=== PATIENT | female | born 1950 | race Caucasian/White ===

== ENCOUNTER 2020-07-16 13:00 | Outpatient (RCR) | payer MEDICARE, SELFPAY ==
--- NOTE | 2020-03-25 12:19 | HP.PTEVAL_ITS ---
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 Date of Evaluation: 03/25/20 Physical Therapist: JESSY Roland - Visit Plan Frequency: 3x /Week Duration: 2 Months Plan: ++Posterior hip precautions, WBAT++. 3X/ week for 20 visits for R hip and knee ROM ( including hip and knee extension as in normal supine lying or QS), R hip and knee strength, functional strength such as stairs and sit to stand, gait training with HEP. ++++Pt does have a bad R knee, bad back, and also has some c-spine issues as well++ - Subjective Pt had spurs and OA in her R hip and it got to where her bone was coming out of socket. Her DOS was 03-14-2020 and she was there for 2 days. She has stairs to get into the house with railing with a platform on each steep step. She struggles getting in and out of the shower... she has a chair but they have a system. She is currently on a rolling walker. The Dr did not say how much weight to put through her leg. She RTD on 04-14-2020. She said that her Dr usually only does skinny people. She sleeps with hip and pillow and has a stool to get into her bed and hard to get herself scooted backwards. Pt has to have her knee done next, then her back and then her neck. - Pain R hip pain Pain Intensity (Out of 10): 2 - Objective Pt have very poor walking endurance... had to stop twice on the way to and from the waiting room. She likes to plop into the chair and needed verbal cues to use her arms to make sure she was going to sit in the chair and to lower herself down. Pt also stuggled with scooting back onto the mat table. Gait: walks with a rolling walker with decrease stride length on the R and heavy pressure through B UE's on the walker. She walks with flexed trunk and decreased B hip extension and decreased heel and toe gait pattern. R hip flexion PROM to just shy of 90 degrees. R knee ext -10 degrees from full extension and R knee flexion 110 degrees. R hip ABD AAROM to approx 5 degrees ( increase discomfort in the groin). AA SLR needed X 10. SAQ... feels it in the groin - Goals Goal 1:: I HEP Goal Time Frame: 4-6 Weeks Goal 2:: Increase R knee extension to 0 degrees extension Goal Time Frame: 4-6 Weeks Goal 3:: Be able to walk without an assistive device with normal stride length and increase hip extension with normal heel to toe gait pattern. Goal Time Frame: 4-6 Weeks Goal 4:: Be able to go up and down 1 flight of stairs recip with 1 hand rail with SBA Goal Time Frame: 4-6 Weeks - Rehabilitation Potential Rehabilitation Potential: Good - Anticipated Interventions Patient/Client Instruction: Educate patient on: Condition, Plan of Care For the Purpose of:: To decrease pain, To increase ROM, To improve nutrient delivery to tissue, To increase oxygenation perfusion, To improve muscle performance and motor function, To improve ability to perform ADL's, To increase tolerance to activity/condition/position, To improve performance and independence with ADL's, To decrease level of supervision to perform tasks, To improve ability of physical actions for home/community/work/leisure, To improve gait and locomotor functions, To improve health of tissue, To decrease soft tissue restriction, To increase flexibility/ROM, To improve endurance, To improve balance, To improve safety with gait Therapeutic Exercise to Include: Strength training, Endurance training, Balance training, Postural training, Flexibilty training, Gait and locomotor training, Active ROM For the Purpose of:: To decrease pain, To decrease swelling/inflammation, To increase ROM, To increase oxygenation perfusion, To improve muscle performance and motor function, To improve ability to perform ADL's, To increase tolerance to activity/condition/position, To improve performance and independence with ADL's, To decrease level of supervision to perform tasks, To improve ability of physical actions for home/community/work/leisure, To improve gait and locomotor functions, To improve health of tissue, To decrease soft tissue restriction, To increase flexibility/ROM, To improve endurance, To improve safety with gait Functional Training to Include: Gait training For the Purpose of:: To improve gait and locomotor functions, To improve safety with gait Thank you for the opportunity to evaluate your patient. For Medicare and Medicare HMO plans, please review the plan of care and approve it. It will need to be FAXED BACK to us at [phone] for Medicare purposes. For Medicare only, by signing this I certify the plan of care. Please let me know if there are questions or concerns regarding this plan of care. Physician Signature: Date:
--- NOTE | 2020-04-16 11:39 | HP.PTREVAL ---
DM CRENSHAW, It has been my pleasure to treat SIOBHAN RENTERIA over the last 8 visits for S/P R THR 03-14-2020. Please see the progress note below for an update on the physical therapy plan of care! Subjective: Pt got her order for AT since PT is aggrevating her knee and back. She report that her R hip is fine. When she has pain it is around the incision. She has steps to get into the house with railing and she is doing that just fine. She does not feel that she needs the walker. No issues with getting out of chair. Objective/Function: Gait: walks with flexed trunk and cane in R hand with shorter stride. Pt has increase SOB with ambulation after only about 50 feet and worsened the longer we walked. Stairs: up and down leading with L but able to go up recip with 2 hand rails when asked to but it increases knee pain. Also had increased SOB with it. R knee ext -5 degrees from full extension Plan Plan: ++Posterior hip precautions, WBAT++. Pt is able to transition to a cane when able per MD. 2X/ week for 4 weeks for R hip and knee ROM ( including hip and knee extension as in normal supine lying or QS), R hip and knee strength, functional strength such as stairs and sit to stand, gait training with HEP. ++++Pt does have a bad R knee, bad back, and also has some c-spine issues as well++ Goals Goal 1:: I HEP Goal Time Frame: 4-6 Weeks Goal Progress: Progressing Goal 2:: Increase R knee extension to 0 degrees extension Goal Time Frame: 4-6 Weeks Goal Progress: Progressing Goal 3:: Be able to walk without an assistive device with normal stride length and increase hip extension with normal heel to toe gait pattern. Goal Time Frame: 4-6 Weeks Goal Progress: Progressing Goal 4:: Be able to go up and down 1 flight of stairs recip with 1 hand rail with SBA Goal Time Frame: 4-6 Weeks Goal Progress: Progressing Goal 5:: Be able to walk 300 feet with least restirctive device with no SOB or LOB Goal Time Frame: 2-4 Weeks Anticipated Interventions Patient/Client Instruction: Educate patient on: Condition, Plan of Care For the Purpose of:: To decrease pain, To increase ROM, To improve nutrient delivery to tissue, To increase oxygenation perfusion, To improve muscle performance and motor function, To improve ability to perform ADL's, To increase tolerance to activity/condition/position, To improve performance and independence with ADL's, To decrease level of supervision to perform tasks, To improve ability of physical actions for home/community/work/leisure, To improve gait and locomotor functions, To improve health of tissue, To decrease soft tissue restriction, To increase flexibility/ROM, To improve endurance, To improve balance, To improve safety with gait Therapeutic Exercise to Include: Strength training, Endurance training, Balance training, Postural training, Flexibilty training, Gait and locomotor training, Active ROM For the Purpose of:: To decrease pain, To decrease swelling/inflammation, To increase ROM, To increase oxygenation perfusion, To improve muscle performance and motor function, To improve ability to perform ADL's, To increase tolerance to activity/condition/position, To improve performance and independence with ADL's, To decrease level of supervision to perform tasks, To improve ability of physical actions for home/community/work/leisure, To improve gait and locomotor functions, To improve health of tissue, To decrease soft tissue restriction, To increase flexibility/ROM, To improve endurance, To improve safety with gait Functional Training to Include: Gait training For the Purpose of:: To improve gait and locomotor functions, To improve safety with gait Please do not hesitate to contact me at [phone] by phone or if you have questions or concerns regarding this new plan of care! Sincerely, JESSY Roland
--- NOTE | 2020-05-14 12:54 | HP.PTREVAL ---
DM CRENSHAW, It has been my pleasure to treat SIOBHAN RENTERIA over the last 16 visits for S/P R THR 03-14-2020. Please see the progress note below for an update on the physical therapy plan of care! Subjective: The AT is so much better. She is going to have knee injections in B knees in Jul and hopefully a back injection. She is now able to walk back to the treatment area. She is doing better with her hip. She is still struggling with her knees and back pain. No hip pain. The water therapy is helping her knees and back too. Her form is still not good with some of the exercises per SHIRA Cheek. Objective/Function: Gait: walks with decrease stance time on the R LE. She is walking with increased trunk extension. She is walking with increased stride length but not quite as normal as should be... still trunk flexion with gait but improved. Stairs: up and down attempting recip but uses UE to descend the stairs and hopes to stop knee from bending. R Knee ext AROM: -5 degrees from full extension. Plan Plan: Continue with AT for R hip and knee strength and core strength and gait training and gearing toward I AT program. Is not tolerating greater WBings (50%+) well yet. Would recommend eventual transition to I pool program at this facility with [employer] membership (pt has Doc Higgins). *Needs I pool program page next. *POST. HIP FLORENCIA PRECUATIONS. *Add lunges next Goals Goal 1:: I HEP Goal Time Frame: 4-6 Weeks Goal Progress: Progressing Goal 2:: Increase R knee extension to 0 degrees extension Goal Time Frame: 4-6 Weeks Goal Progress: Progressing Goal 3:: Be able to walk without an assistive device with normal stride length and increase hip extension with normal heel to toe gait pattern. Goal Time Frame: 4-6 Weeks Goal Progress: Progressing Goal 4:: Be able to go up and down 1 flight of stairs recip with 1 hand rail with SBA Goal Time Frame: 4-6 Weeks Goal Progress: Progressing Goal 5:: Be able to walk 300 feet with least restirctive device with no SOB or LOB Goal Time Frame: 2-4 Weeks Goal Progress: Progressing Anticipated Interventions Patient/Client Instruction: Educate patient on: Condition, Plan of Care For the Purpose of:: To decrease pain, To increase ROM, To improve nutrient delivery to tissue, To increase oxygenation perfusion, To improve muscle performance and motor function, To improve ability to perform ADL's, To increase tolerance to activity/condition/position, To improve performance and independence with ADL's, To decrease level of supervision to perform tasks, To improve ability of physical actions for home/community/work/leisure, To improve gait and locomotor functions, To improve health of tissue, To decrease soft tissue restriction, To increase flexibility/ROM, To improve endurance, To improve balance, To improve safety with gait Therapeutic Exercise to Include: Strength training, Endurance training, Balance training, Postural training, Flexibilty training, Gait and locomotor training, Active ROM For the Purpose of:: To decrease pain, To decrease swelling/inflammation, To increase ROM, To increase oxygenation perfusion, To improve muscle performance and motor function, To improve ability to perform ADL's, To increase tolerance to activity/condition/position, To improve performance and independence with ADL's, To decrease level of supervision to perform tasks, To improve ability of physical actions for home/community/work/leisure, To improve gait and locomotor functions, To improve health of tissue, To decrease soft tissue restriction, To increase flexibility/ROM, To improve endurance, To improve safety with gait Functional Training to Include: Gait training For the Purpose of:: To improve gait and locomotor functions, To improve safety with gait Please do not hesitate to contact me at [phone] by phone or if you have questions or concerns regarding this new plan of care! Sincerely, JESSY Roland
--- NOTE | 2020-06-25 13:54 | HP.PTREVAL ---
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 Please see the progress note below for an update on the physical therapy plan of care! Subjective: Pt had injections in her knees and she feels much better. told her to keep getting injections and not to do TKR. She will see the back and neck Dr in July. Her hip feels good. She has pain when she gets up in the morning while she did something while sleeping or it could be from her back. Pt wants to continue AT therapy for 3 weeks until she is released from hip Dr. Objective/Function: Stairs: up stairs recip with occ rail use for balance and descending stairs with decrease ability to bend L knee while descending. Plan Plan: 2X/ week for 5-6 additional appointments to give I Doc Sneakers program and work on trying to increase L knee flexion when descending stairs. Goals Goal 1:: I HEP Goal Time Frame: 4-6 Weeks Goal Progress: Progressing Goal 2:: Increase R knee extension to 0 degrees extension Goal Time Frame: 4-6 Weeks Goal Progress: Progressing Goal 3:: Be able to walk without an assistive device with normal stride length and increase hip extension with normal heel to toe gait pattern. Goal Time Frame: 4-6 Weeks Goal Progress: Goal Met Goal 4:: Be able to go up and down 1 flight of stairs recip with 1 hand rail with SBA Goal Time Frame: 4-6 Weeks Goal Progress: Progressing Goal 5:: Be able to walk 300 feet with least restirctive device with no SOB or LOB Goal Time Frame: 2-4 Weeks Goal Progress: Progressing Anticipated Interventions Patient/Client Instruction: Educate patient on: Condition, Plan of Care For the Purpose of:: To decrease pain, To increase ROM, To improve nutrient delivery to tissue, To increase oxygenation perfusion, To improve muscle performance and motor function, To improve ability to perform ADL's, To increase tolerance to activity/condition/position, To improve performance and independence with ADL's, To decrease level of supervision to perform tasks, To improve ability of physical actions for home/community/work/leisure, To improve gait and locomotor functions, To improve health of tissue, To decrease soft tissue restriction, To increase flexibility/ROM, To improve endurance, To improve balance, To improve safety with gait Therapeutic Exercise to Include: Strength training, Endurance training, Balance training, Postural training, Flexibilty training, Gait and locomotor training, Active ROM For the Purpose of:: To decrease pain, To decrease swelling/inflammation, To increase ROM, To increase oxygenation perfusion, To improve muscle performance and motor function, To improve ability to perform ADL's, To increase tolerance to activity/condition/position, To improve performance and independence with ADL's, To decrease level of supervision to perform tasks, To improve ability of physical actions for home/community/work/leisure, To improve gait and locomotor functions, To improve health of tissue, To decrease soft tissue restriction, To increase flexibility/ROM, To improve endurance, To improve safety with gait Functional Training to Include: Gait training For the Purpose of:: To improve gait and locomotor functions, To improve safety with gait Please do not hesitate to contact me at [phone] by phone or if you have questions or concerns regarding this new plan of care! Sincerely, Denisse De Luna, MPT
--- NOTE | 2020-07-16 13:21 | HP.PTDCSUM ---
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 Discharge Date: 07/16/20 Please see the following information for a summary of their discharge status. Subjective: released her and says no restrictions. She has her I water program... R hip pain Pain Intensity (Out of 10): 6 RIGHT KNEE Pain Intensity (Out of 10): 3 LEFT KNEE Pain Intensity (Out of 10): 6 LOW BACK Pain Intensity (Out of 10): 6 % Improvement: 99 Objective/Function: Gait: Walks with slight antalgic gait on the L leg ( non operated side). Stairs: up and down recip with increase difficulty on the L side with hand rails. R knee extension is 0 degrees Goal 1:: I HEP Goal Progress: Goal Met Goal 2:: Increase R knee extension to 0 degrees extension Goal Progress: Goal Met Goal 3:: Be able to walk without an assistive device with normal stride length and increase hip extension with normal heel to toe gait pattern. Goal Progress: Goal Met Goal 4:: Be able to go up and down 1 flight of stairs recip with 1 hand rail with SBA Goal Progress: Goal Met Goal 5:: Be able to walk 300 feet with least restirctive device with no SOB or LOB Goal Progress: Goal Met Plan: DC PT to I AT [facility] routine Discharge Comments: DC PT to [facility] If there are questions or concerns regarding this patient's physical therapy, please feel free to call me at [phone]. Thank you for the referral of this patient. Sincerely, Denisse De Luna, MPT
== END 2020-07-16 19:00 | disposition home or self-care (01) ==
LOC: PT 13:00
PROVIDERS: PCP Counselor Mental Health
DX: Z47.1 Aftercare following joint replacement surgery (principal); Z96.641 Presence of right artificial hip joint
CPT/HCPCS: 97110; 97113; 97161; 97530

== ENCOUNTER 2021-06-18 14:00 | Outpatient (RCR) | payer MEDICARE, SELFPAY ==
--- NOTE | 2021-03-23 08:24 | HP.PTEVAL_ITS ---
Patient's Visit Information SIOBHAN RENTERIA is a 71 year old F referred to Physical Therapy by GABRIELLA NELSON with a diagnosis of B knee OA. Date of Evaluation: 03/23/21 Physical Therapist: Pierce Steinberg DPT - Visit Plan Frequency: 2-3x /Week Duration: 4-6 Weeks Plan: Start with BLE strength and ROM in aquatic setting. Progress dynamic movement as tolerated. - Subjective Pt. is here today for her initial evaluation with diagnosis with B knee OA and back pain. Pt. reports having B knee pain for years, but has been progressively getting worse. Pt. reports having 8/10 pain currently in B knees, but will have 10/10 often. Pt. denies N/T, and no mech of injury. Increased pain: with walking, standing, stairs, squatting, lifting, getting up/down. Decreases pain: medication, rest. Pt. is hopeful to get back to walking and household activities without increase in symptoms. She has been doing some aquatic exercises on her own, but is still having trouble with her B knee pain. Pt. is having trouble sleeping and increased stiffness after sustained positioning - Pain R knee Pain Intensity (Out of 10): 8 Pain Intensity Range: 6, 10 L knee Pain Intensity (Out of 10): 8 Pain Intensity Range: 7, 10 - Objective POSTURE: pt. has B knee varus positioning in stance. Pt. lacks TKE in both knees in stance. PALPATION: Pt. has increase in symptoms with palpation of B knee joint line. Pt. has increased edema in B knees. NEURO: normal sensation and DTR of patellar and Achilles tendons. ROM: R knee: 0-12-102deg. L knee 0-11-112deg. PT. has tight HS bilat. Normal hip ROM bilaterally. MMT: Pt. has general 4/5 strength throughout BLEs. GAIT: Pt. ambulates with SPC with B knee valgus, lacks TKE during stance phase bilat. Generalized flexed posture noted. STAIRS: Step to pattern, loading LLE, heavy use of BHR. - Goals Goal 1:: LTG: Pt. to be I with HEP. Goal Time Frame: 2-4 Weeks Goal 2:: LTG: Pt. to have increased B knee ROM by 25% in all directions. Goal Time Frame: 2-4 Weeks Goal 3:: LTG: Pt. to sleep throughout the night with 0-3/10 pain in B knees. Goal Time Frame: 4-6 Weeks Goal 4:: LTG: Pt. to ambulate 500'+ with SPC with 0-3/10 pain in B knees. Goal Time Frame: 4-6 Weeks Goal 5:: LTG: Pt. to have increased B knee and hip musculature increased to 4+/5 throughout. Goal Time Frame: 4-6 Weeks - Rehabilitation Potential Physical Therapy Diagnosis: Pt. has signs and symptoms consistent with B knee OA. She has subsequent hypomobility, weakness, and difficulty with gait. Pt. would benefit from PT to address the above limitations progressing her functiona l mobility as able. Rehabilitation Potential: Good - Anticipated Interventions Patient/Client Instruction: Educate patient on: Condition, Plan of Care, Risk Factors, Benefits of Fitness Program For the Purpose of:: To foster healthy habits, To improve decision making, To facilitate caregiver knowledge, To improve self management, To prevent re- injury, To improve ability to perform tasks related to life management Therapeutic Exercise to Include: Strength training, Power training, Coordination, Postural training, Flexibilty training, Gait and locomotor training, In an aquatic setting, Active ROM, Dynamic Lumbar Stabilization For the Purpose of:: To decrease pain, To decrease swelling/inflammation, To increase ROM, To improve nutrient delivery to tissue, To increase oxygenation perfusion, To improve muscle performance and motor function, To improve ability to perform ADL's, To improve gait and locomotor functions, To improve health of tissue, To decrease soft tissue restriction, To increase flexibility/ROM Thank you for the opportunity to evaluate your patient. For Medicare and Medicare HMO plans, please review the plan of care and approve it. It will need to be FAXED BACK to us at [phone] for Medicare purposes. For Medicare only, by signing this I certify the plan of care. Please let me know if there are questions or concerns regarding this plan of care. Physician Signature: Date:
--- NOTE | 2021-04-22 15:41 | HP.PTREVAL_ITS ---
GABRIELLA NELSON, It has been my pleasure to treat SIOBHAN RENTERIA over the last 13 visits for B knee OA. Please see the progress note below for an update on the physical therapy plan of care! Subjective: Pt. reports being about 40% better in her BLEs. She is still having increased pain walking. She did report that she has been noticing that is she sits on a hard surfaces she is unable to straighten her R leg. She does have a script for her lumbar spine, diagnosis of spondylosis, and back pain. Flexion seems to help, but unable to stand up fulling. Increased walking seems increase in symptoms. Objective/Function: Pt. is still having high levels of pain in her R knee. She reports high levels of pain with attempting to straighten out her R knee (lacking 30deg of extension) with high levels pain. L knee: 0-5-110deg. LUMBAR SPINE: flexion min loss increase NW, extension max loss increase NE, SB min loss increase NW, rotation mod loss increase NW. She has N/T in BLEs. Pt. reports having consistent N/T in BLE and hands. MMT: RLE: ankle 5/5; knee: ext 4/5 increase NW, flexion 4+/5; hip- flexion 4/5, abd 4/5. LLE: ankle 5/5; knee 4+/5 flexion and extension; hip- flexion 4+5/ and 4/5. Core strength- poor. GAIT: pt. was able to ambulate 350' today, but does have increased R knee pain 5/10 and lumbar spine pain 5/10/. Plan Plan: I would like her to continue in aquatic setting working on BLE ROM to tolerance, B knee/hip strength and core stability exercises. I would like her to progress to I water program. I am adding her back assessment to her current POC rather than having multiple charts open. I will send note to both physicians. Balance/Gait/Functional tests - Balance/Special Test Scores Lower Extremity Functional Score: 30 Goals Goal 1:: LTG: Pt. to be I with HEP. Goal Time Frame: 2-4 Weeks Goal Progress: Progressing Goal 2:: LTG: Pt. to have increased B knee ROM by 25% in all directions. Goal Time Frame: 2-4 Weeks Goal Progress: Progressing Goal 3:: LTG: Pt. to sleep throughout the night with 0-3/10 pain in B knees. Goal Time Frame: 4-6 Weeks Goal Progress: Progressing Goal 4:: LTG: Pt. to ambulate 500'+ with SPC with 0-3/10 pain in B knees. Goal Time Frame: 4-6 Weeks Goal Progress: Progressing Goal 5:: LTG: Pt. to have increased B knee and hip musculature increased to 4+/5 throughout. Added increase core strength to fair- to this goal today 04/22/21. Goal Time Frame: 4-6 Weeks Goal Progress: Progressing Goal 6:: LTG: Lumbar spine ROM increased by 25% in all directions. Goal Progress: Progressing Anticipated Interventions Patient/Client Instruction: Educate patient on: Condition, Plan of Care, Risk Factors, Benefits of Fitness Program For the Purpose of:: To foster healthy habits, To improve decision making, To facilitate caregiver knowledge, To improve self management, To prevent re- injury, To improve ability to perform tasks related to life management Therapeutic Exercise to Include: Strength training, Power training, Coordination, Postural training, Flexibilty training, Gait and locomotor training, In an aquatic setting, Active ROM, Dynamic Lumbar Stabilization For the Purpose of:: To decrease pain, To decrease swelling/inflammation, To increase ROM, To improve nutrient delivery to tissue, To increase oxygenation perfusion, To improve muscle performance and motor function, To improve ability to perform ADL's, To improve gait and locomotor functions, To improve health of tissue, To decrease soft tissue restriction, To increase flexibility/ROM Please do not hesitate to contact me at [phone] by phone or if you have questions or concerns regarding this new plan of care! Sincerely, Pierce Steinberg DPT
--- NOTE | 2021-05-18 07:47 | HP.PTREVAL_ITS ---
GABRIELLA NELSON, It has been my pleasure to treat SIOBHAN RENTERIA over the last 23 visits for B knee OA. Please see the progress note below for an update on the physical therapy plan of care! Subjective: Pt. reports seeing her physician, who reports he does not want to do any surgeries on her until next year after COVID. Pt. reports she is going to have injections in her back in 1-2 weeks. Pt. reports 8/10 pain currently in her L hip and lumbar spine. Pt. reports having a huge relief of symptoms while in pool. Objective/Function: Pt. does well in aquatic setting, but has increased pain with walking and standing on land. She continues to have flexed posture with increased lateral hip translation on L side, which increases during L stance phase. ROM: Lumbar spine: flexion min loss increase NW, ext mod/max loss increase NE, SB mod loss Bilat increase NW, rotation mod loss bilat increase NW. L hip: flexion 90deg increase NW, , ext 10deg increase NW, ER 45deg increase NW, abd 40deg increase NW, IR 5 deg increase NE. MMT: BLEs: ankle/knee 5-/5 throughout; hip- 4/5 through out, except 4-/5 B hip abd. Core strength- poor+. GAIT: Pt. has general flexed posture with increased L hip lateral translation, especially during L stance phase. Pt. uses cane which helps, but does not eliminate her symptoms. Pt. ambulated 425' prior to needing to sit down secondary to pain and fatigue. She reports increased pain in both lumbar spine, L hip abd B knees with walking. Plan Plan: Pt. is improving. I talked to her about reducing to x2 per week for another 4 weeks. Our main goal with the next 4 weeks is becoming independent with her HEP for both ROM (stretching) and B LE and core stability exercises. Pt. consents. Balance/Gait/Functional tests - Balance/Special Test Scores Lower Extremity Functional Score: 35 Goals Goal 1:: LTG: Pt. to be I with HEP. Goal Time Frame: 2-4 Weeks Goal Progress: Progressing Goal 2:: LTG: Pt. to have increased B knee ROM by 25% in all directions. Goal Time Frame: 2-4 Weeks Goal Progress: Progressing Goal 3:: LTG: Pt. to sleep throughout the night with 0-3/10 pain in B knees. Goal Time Frame: 4-6 Weeks Goal Progress: Progressing Goal 4:: LTG: Pt. to ambulate 500'+ with SPC with 0-3/10 pain in B knees. Goal Time Frame: 4-6 Weeks Goal Progress: Progressing Goal 5:: LTG: Pt. to have increased B knee and hip musculature increased to 4+/5 throughout. Added increase core strength to fair- to this goal today 04/22/21. Goal Time Frame: 4-6 Weeks Goal Progress: Progressing Goal 6:: LTG: Lumbar spine ROM increased by 25% in all directions. Goal Progress: Progressing Anticipated Interventions Patient/Client Instruction: Educate patient on: Condition, Plan of Care, Risk Factors, Benefits of Fitness Program For the Purpose of:: To foster healthy habits, To improve decision making, To facilitate caregiver knowledge, To improve self management, To prevent re- injury, To improve ability to perform tasks related to life management Therapeutic Exercise to Include: Strength training, Power training, Coordination, Postural training, Flexibilty training, Gait and locomotor training, In an aquatic setting, Active ROM, Dynamic Lumbar Stabilization For the Purpose of:: To decrease pain, To decrease swelling/inflammation, To increase ROM, To improve nutrient delivery to tissue, To increase oxygenation perfusion, To improve muscle performance and motor function, To improve ability to perform ADL's, To improve gait and locomotor functions, To improve health of tissue, To decrease soft tissue restriction, To increase flexibility/ROM Please do not hesitate to contact me at [phone] by phone or if you have questions or concerns regarding this new plan of care! Sincerely, Pierce Steinberg DPT
--- NOTE | 2021-06-22 09:43 | HP.PTDCSUM ---
It has been my pleasure to treat SIOBHAN RENTERIA referred by GABRIELLA NELSON, with the diagnosis of B knee OA for a total of 31 visit(s). Discharge Date: Please see the following information for a summary of their discharge status. Subjective: Pt. reports overall doing about 70% better. She is still having a lot of pain in her knees. She reports going to see physician who is planning on doing a TKA on her R side begging of next year. Pt. reports being compliant with pool exercises without issues. R knee Pain Intensity (Out of 10): 10 L knee Pain Intensity (Out of 10): 2 LB Pain Intensity (Out of 10): 3 L hip Pain Intensity (Out of 10): 2 % Improvement: 70 Objective/Function: ROM: R knee: 0-7-101deg. L knee 0-5-104deg. Pt. reports pain at both LEs both and end range flexion and extension. MMT: 4+/5 throughout; but does report increased pain with B knee extension, at each anterior knee. GAIT: Pt. ambulates with cane, but has improved tempo this date. She still has flexed posture and decreased step length and lateral hip translation during stance phase bilaterally. She lacks TKE bilaterally as well. STAIRS: step to pattern with heavy use of HRs. Goal 1:: LTG: Pt. to be I with HEP. Goal Progress: Progressing Goal 2:: LTG: Pt. to have increased B knee ROM by 25% in all directions. Goal Progress: Progressing Goal 3:: LTG: Pt. to sleep throughout the night with 0-3/10 pain in B knees. Goal Progress: Progressing Goal 4:: LTG: Pt. to ambulate 500'+ with SPC with 0-3/10 pain in B knees. Goal Progress: Goal Met Goal 5:: LTG: Pt. to have increased B knee and hip musculature increased to 4+/5 throughout. Added increase core strength to fair- to this goal today 04/22/21. Goal Progress: Progressing Goal 6:: LTG: Lumbar spine ROM increased by 25% in all directions. Goal Progress: Progressing Plan: Pt. will be DC to HEP at this point in time. Pt. is to complete her aquatic program. If her physician desires we can do more pre hab for her TKA if needed. If there are questions or concerns regarding this patient's physical therapy, please feel free to call me at [phone]. Thank you for the referral of this patient. Sincerely, Pierce Steinberg, DPT Balance/Gait/Functional tests - Balance/Special Test Scores Lower Extremity Functional Score: 35
== END 2021-06-18 19:00 | disposition home or self-care (01) ==
LOC: PT 14:00
PROVIDERS: PCP Counselor Mental Health
DX: M17.0 Bilateral primary osteoarthritis of knee (principal); M51.37 Other intervertebral disc degeneration, lumbosacral region; M47.817 Spondylosis without myelopathy or radiculopathy, lumbosacral region
CPT/HCPCS: 97113; 97161; 97164

== ENCOUNTER → 2021-06-19 17:29 | Outpatient (CLI) | payer MEDICARE, SELFPAY ==
[2021-06-19 18:31] LABS: CREATININE FINGERSTICK 1.2 mg/dL (0.55-1.02)
--- NOTE | 2021-06-19 18:35 | MRI_ITS ---
STUDY: MRI BRAIN WITH AND WITHOUT CONTRAST REASON FOR EXAM: Female, 71 years old. LEFT tinnitus and bilateral ringing in ears TECHNIQUE: Standardized multiplanar fat and water weighted pulse sequences were obtained. IV 19mL Dotarem was administered for the contrast portion of the examination. COMPARISON: None. FINDINGS: Brain is normal without acute infarct, lesions or enhancement. There is mild chronic white matter ischemic/gliotic change. Cerebellopontine angles, cranial nerves VII/8 and related temporal bone structures are normal. There is fluid in the sphenoid sinuses with normal mucosa. Maxillary and ethmoid sinuses are clear. Orbits are normal. MRI/Brain W/WO Contrast IMPRESSION: 1. Mild white matter atherosclerotic chronic change. 2. No acute abnormality. 3. Normal temporal bone related structures. Electronically Signed: Shantelle Vega MD at 13:00 EST Tel , Service support ,
== END ==
PROVIDERS: PCP Counselor Mental Health; Visit Provider Otolaryngology
DX: H93.12 Tinnitus, left ear (principal)
CPT/HCPCS: 70553; A9575

== ENCOUNTER 2022-04-30 14:00 | Outpatient (RCR) | payer MEDICARE, SELFPAY ==
--- NOTE | 2022-01-28 16:30 | HP.PTEVAL_ITS ---
Patient's Visit Information SIOBHAN RENTERIA is a 72 year old F referred to Physical Therapy by DEJUAN JOE MD with a diagnosis of RADICULOPATHY LUMBAR REGION,BILATERAL PRIMARY OSTEOATHRITIS ,SPONDYLOSIS. Date of Evaluation: 01/28/22 Physical Therapist: Juan M Velasquez, PT, Cert MDT, OCS - Visit Plan Frequency: 2x /Week Duration: 4 Weeks Plan: PT INTERVENTIONS AQUATIC THERAPY FOR ROM KNEE,STENGTHNEING QUADS/HAMS/HIP ,LUMBAR ROM,FLEXABLITY AND POSTURE - Subjective This 72 y/o female presents to physical therapy with back pain and knee pain. Patient has had knee pain 5-6 years with progressive DJD and lumbar pain many years . Patient seen pain management with epidural injections in past and ablations ,plan to get another in middle January and recommended Aquatic . Patient has had MRI stenosis ,DDD .~ years ago. No recent x-rays. Patient had recent CBAG x2 October 282021 at [facility]. Patient global knee pain ,pressure ache/sharp/dull throbbing pain. Aggravating walking ,standing < 5 mins ,stairs . Patient unable squat /kneel . Alleviating factors rest. Location symmetrical with paresthesia/tingling in legs ,but takes gabapentin. Aggravating factors sitting ,standing ,walking ,lifting. Alleviating factors rest. Patient pain a ffects sleeping. Patient unable to do housework ,and has difficulty with ADL's. Patient has had prior PT to include Aquatics . Patient has had left THR. Patient goals to have less pain. VOCATION: . SOCIAL: unemployed - Pain Bilateral Back Pain Intensity (Out of 10): 5 Pain Intensity Range: 10 Bilateral Knee Pain Intensity (Out of 10): 8 Pain Intensity Range: 10 Bilateral Lower Extremity Pain Intensity (Out of 10): 5 Pain Intensity Range: 10 Comment: thighs/tibia - Objective POSTURE: mild forward posture ,hip/ knees flexed forward. GAIT: Ambulates with straight cane 2 point gait antalgic gait forward posture decrease stance time R> L. NEURO: c/o paresthesia/tingling legs ,light touch intact ,reflexes L3-4,L4-5,L5-S1 1/3. SYMMTRIES: align. MMT ( peak force) : R quads 12.4 ,L 13.8 ,hamstrings R 13.2,L 14.6,HIP FLEXION 15.7. AROM: supine knee flexion R 20 -110 , L 15 105 degrees supine knee flexion. FLEXABLITY: hams mild tight. L UMBAR ROM: flexion min loss ,extension mod/severe loss ,side glides mod loss - Special Tests L/S Slump test left side: Positive L/S Slump test right side: Positive L/S Left Straight Leg Raise: Positive L/S Right Straight Leg Raise: Positive - Balance/Special Test Scores Oswestry Low Back Score: 33 - Goals Goal 1:: I with Aquatic therapy for back/knee's. Goal Time Frame: 4-6 Weeks Goal 2:: Patient to be demonstrate 40% improved with function and decrease pain. Goal Time Frame: 4-6 Weeks Goal 3:: Patient to increase bilateral AROM knee flexion/extension by b5-10 degrees to improve stairs Goal Time Frame: 4-6 Weeks Goal 4:: Patient to improve lumbar ROM for function of recovery to put on shoes Goal Time Frame: 4-6 Weeks Goal 5:: Patient to improve peak force of quads/hams by 5-10 to improve gait Goal Time Frame: 4-6 Weeks Goal 6:: Patient to improve back oswestry score by 5 points to improve QOL - Rehabilitation Potential Physical Therapy Diagnosis: This patient has multiple comorbities with also recent CABG X2 September 2021 with impairments with decrease ROM knee ,lumbar with pain pain with positioning and motion testing lumbar, weakness LE quads/hams impairs walking and function with ADL's thus benefit from skilled PT Rehabilitation Potential: Fair - Anticipated Interventions Patient/Client Instruction: Educate patient on: Condition, Plan of Care For the Purpose of:: To decrease pain, To increase ROM, To improve muscle performance and motor function, To improve ability to perform ADL's, To increase tolerance to activity/condition/position, To improve performance and independence with ADL's, To improve ability of physical actions for home/community/work/leisure, To improve gait and locomotor functions, To improve health of tissue, To decrease soft tissue restriction, To increase flexibility/ROM, To improve balance Therapeutic Exercise to Include: Strength training, Endurance training, Balance training, Body mechanics, Postural training, Flexibilty training, Active ROM, Dynamic Lumbar Stabilization Comment: KNEE -QUADS/HAMS For the Purpose of:: To decrease pain, To decrease swelling/inflammation, To increase ROM, To improve muscle performance and motor function, To improve ability to perform ADL's, To increase tolerance to activity/condition/position, To improve ability of physical actions for home/community/work/leisure, To improve gait and locomotor functions, To improve health of tissue, To decrease soft tissue restriction, To increase flexibility/ROM, To improve endurance, To improve balance Thank you for the opportunity to evaluate your patient. For Medicare and Medicare HMO plans, please review the plan of care and approve it. It will need to be FAXED BACK to us at [phone] for Medicare purposes. For Medicare only, by signing this I certify the plan of care. Please let me know if there are questions or concerns regarding this plan of care. Physician Signature:____ Date:
--- NOTE | 2022-01-28 17:23 | HP.PTEVAL ---
Patient's Visit Information SIOBHAN RENTERIA is a 72 year old F referred to Physical Therapy by DEJUAN JOE MD with a diagnosis of RADICULOPATHY LUMBAR REGION,BILATERAL PRIMARY OSTEOATHRITIS ,SPONDYLOSIS. Date of Evaluation: 01/28/22 Physical Therapist: Juan M Velasquez, PT, Cert MDT, OCS - Visit Plan Frequency: 2x /Week Duration: 4 Weeks Plan: PT INTERVENTIONS AQUATIC THERAPY FOR ROM KNEE,STENGTHNEING QUADS/HAMS/HIP ,LUMBAR ROM,FLEXABLITY AND POSTURE - Subjective This 72 y/o female presents to physical therapy with back pain and knee pain. Patient has had knee pain 5-6 years with progressive DJD and lumbar pain many years . Patient seen pain management with epidural injections in past and ablations ,plan to get another in middle January and recommended Aquatic . Patient has had MRI stenosis ,DDD .~ years ago. No recent x-rays. Patient had recent CBAG x2 October 282021 at [facility]. Patient global knee pain ,pressure ache/sharp/dull throbbing pain. Aggravating walking ,standing < 5 mins ,stairs . Patient unable squat /kneel . Alleviating factors rest. Location symmetrical with paresthesia/tingling in legs ,but takes gabapentin. Aggravating factors sitting ,standing ,walking ,lifting. Alleviating factors rest. Patient pain affects sleeping. Patient unable to do housework ,and has difficulty with ADL's. Patient has had prior PT to include Aquatics . Patient has had left THR. Patient goals to have less pain. VOCATION: . SOCIAL: unemployed - Pain Bilateral Back Pain Intensity (Out of 10): 5 Pain Intensity Range: 10 Bilateral Knee Pain Intensity (Out of 10): 8 Pain Intensity Range: 10 Bilateral Lower Extremity Pain Intensity (Out of 10): 5 Pain Intensity Range: 10 Comment: thighs/tibia - Objective POSTURE: mild forward posture ,hip/ knees flexed forward. GAIT: Ambulates with straight cane 2 point gait antalgic gait forward posture decrease stance time R> L. NEURO: c/o paresthesia/tingling legs ,light touch intact ,reflexes L3-4,L4-5,L5-S1 1/3. SYMMTRIES: align. MMT ( peak force) : R quads 12.4 ,L 13.8 ,hamstrings R 13.2,L 14.6,HIP FLEXION 15.7. AROM: supine knee flexion R 20 -110 , L 15 105 degrees supine knee flexion. FLEXABLITY: hams mild tight. LUMBAR ROM: flexion min loss ,extension mod/severe loss ,side glides mod loss - Special Tests L/S Slump test left side: Positive L/S Slump test right side: Positive L/S Left Straight Leg Raise: Positive L/S Right Straight Leg Raise: Positive - Balance/Special Test Scores Oswestry Low Back Score: 33 - Goals Goal 1:: I with Aquatic therapy for back/knee's. Goal Time Frame: 4-6 Weeks Goal 2:: Patient to be demonstrate 40% improved with function and decrease pain. Goal Time Frame: 4-6 Weeks Goal 3:: Patient to increase bilateral AROM knee flexion/extension by b5-10 degrees to improve stairs Goal Time Frame: 4-6 Weeks Goal 4:: Patient to improve lumbar ROM for function of recovery to put on shoes Goal Time Frame: 4-6 Weeks Goal 5:: Patient to improve peak force of quads/hams by 5-10 to improve gait Goal Time Frame: 4-6 Weeks Goal 6:: Patient to improve back oswestry score by 5 points to improve QOL - Rehabilitation Potential Physical Therapy Diagnosis: This patient has multiple comorbities with also recent CABG X2 September 2021 with impairments with decrease ROM knee ,lumbar with pain pain with positioning and motion testing lumbar, weakness LE quads/hams impairs walking and function with ADL's thus benefit from skilled PT Rehabilitation Potential: Fair - Anticipated Interventions Patient/Client Instruction: Educate patient on: Condition, Plan of Care For the Purpose of:: To decrease pain, To increase ROM, To improve muscle performance and motor function, To improve ability to perform ADL's, To increase tolerance to activity/condition/position, To improve performance and independence with ADL's, To improve ability of physical actions for home/community/work/leisure, To improve gait and locomotor functions, To improve health of tissue, To decrease soft tissue restriction, To increase flexibility/ROM, To improve balance Therapeutic Exercise to Include: Strength training, Endurance training, Balance training, Body mechanics, Postural training, Flexibilty training, In an aquatic setting, Active ROM, Dynamic Lumbar Stabilization Comment: KNEE -QUADS/HAMS For the Purpose of:: To decrease pain, To decrease swelling/inflammation, To increase ROM, To improve muscle performance and motor function, To improve ability to perform ADL's, To increase tolerance to activity/condition/position, To improve ability of physical actions for home/community/work/leisure, To improve gait and locomotor functions, To improve health of tissue, To decrease soft tissue restriction, To increase flexibility/ROM, To improve endurance, To improve balance Thank you for the opportunity to evaluate your patient. For Medicare and Medicare HMO plans, please review the plan of care and approve it. It will need to be FAXED BACK to us at [phone] for Medicare purposes. For Medicare only, by signing this I certify the plan of care. Please let me know if there are questions or concerns regarding this plan of care. Physician Signature: Date:
--- NOTE | 2022-03-04 15:06 | HP.PTREVAL_ITS ---
DEJUAN JOE MD, It has been my pleasure to treat SIOBHAN RENTERIA over the last 10 visits for RADICULOPATHY LUMBAR REGION,BILATERAL PRIMARY OSTEOATHRITIS ,SPONDYLOSIS. Please see the progress note below for an update on the physical therapy plan of care! Subjective: Patient had ablation lumbar.. PT Aquatic is helping with pain. Patient plans to see Dr Dent for possible synvix injections. Patient had prednisone dose pack . Objective/Function: POSTURE: mild forward posture. NEURO: c/o paresthesia/tingle legs thighs. GAIT: reciprocal pattern with cane 2 point gait. MMT: quads/hams 4/5 ,hip flexion 4-/5 ankle 4/5. LUMBAR ROM: flexion WFL ,extension severe loss, side glides min loss Plan Plan: PT INTERVENTIONS AQUATIC THERAPY FOR ROM KNEE,STENGTHNEING QUADS/HAMS/HIP ,LUMBAR ROM,FLEXABLITY AND POSTURE Balance/Gait/Functional tests - Balance/Special Test Scores Oswestry Low Back Score: 26 Goals Goal 1:: I with Aquatic therapy for back/knee's. Goal Time Frame: 4-6 Weeks Goal Progress: Progressing Goal 2:: Patient to be demonstrate 40% improved with function and decrease pain. Goal Time Frame: 4-6 Weeks Goal Progress: Progressing Goal 3:: Patient to increase bilateral AROM knee flexion/extension by b5-10 degrees to improve stairs Goal Time Frame: 4-6 Weeks Goal Progress: Progressing Goal 4:: Patient to improve lumbar ROM for function of recovery to put on shoes Goal Time Frame: 4-6 Weeks Goal Progress: Progressing Goal 5:: Patient to improve peak force of quads/hams by 5-10 to improve gait Goal Time Frame: 4-6 Weeks Goal Progress: Progressing Goal 6:: Patient to improve back oswestry score by 5 points to improve QOL Goal Progress: Progressing Anticipated Interventions Patient/Client Instruction: Educate patient on: Condition, Plan of Care For the Purpose of:: To decrease pain, To increase ROM, To improve muscle performance and motor function, To improve ability to perform ADL's, To increase tolerance to activity/condition/position, To improve performance and independence with ADL's, To improve ability of physical actions for home/community/work/leisure, To improve gait and locomotor functions, To improve health of tissue, To decrease soft tissue restriction, To increase flexibility/ROM, To improve balance Therapeutic Exercise to Include: Strength training, Endurance training, Balance training, Body mechanics, Postural training, Flexibilty training, In an aquatic setting, Active ROM, Dynamic Lumbar Stabilization Comment: KNEE -QUADS/HAMS For the Purpose of:: To decrease pain, To decrease swelling/inflammation, To increase ROM, To improve muscle performance and motor function, To improve joseph lity to perform ADL's, To increase tolerance to activity/condition/position, To improve ability of physical actions for home/community/work/leisure, To improve gait and locomotor functions, To improve health of tissue, To decrease soft tissue restriction, To increase flexibility/ROM, To improve endurance, To improve balance Please do not hesitate to contact me at [phone] by phone or Fax: if you have questions or concerns regarding this new plan of care! Sincerely, Juan M Velasquez, PT, Cert MDT, OCS
--- NOTE | 2022-04-30 14:26 | HP.PTDCSUM ---
It has been my pleasure to treat SIOBHAN RENTERIA referred by DEJUAN JOE MD, with the diagnosis of RADICULOPATHY LUMBAR REGION,BILATERAL PRIMARY OSTEOATHRITIS ,SPONDYLOSIS for a total of 28 visit(s). Discharge Date: 04/30/22 Please see the following information for a summary of their discharge status. Subjective: Doing okay with Aquatic therapy . Back pain is stiffness ,waiting for knee injection synvix in each in knee Bilateral Back Pain Intensity (Out of 10): 5 Bilateral Knee Pain Intensity (Out of 10): 8 Bilateral Lower Extremity Pain Intensity (Out of 10): 0 Lumbar Spine Pain Intensity (Out of 10): 5 % Improvement: 70 Objective/Function: POSTURE: forward posture. NEURO: c/o paresthesia/tingling in feet. PALAPTION: tender LS. GAIT: ambulates with cane community distances. LUMBAR ROM: flexion min loss, extension mod /severe ,side glides mod loss Goal 1:: I with Aquatic therapy for back/knee's. Goal Progress: Progressing Goal 2:: Patient to be demonstrate 40% improved with function and decrease pain. Goal Progress: Progressing Goal 3:: Patient to increase bilateral AROM knee flexion/extension by b5-10 degrees to improve stairs Goal Progress: Progressing Goal 4:: Patient to improve lumbar ROM for function of recovery to put on shoes Goal Progress: Progressing Goal 5:: Patient to improve peak force of quads/hams by 5-10 to improve gait Goal Progress: Progressing Goal 6:: Patient to improve back oswestry score by 5 points to improve QOL Goal Progress: Progressing Plan: D/C If there are questions or concerns regarding this patient's physical therapy, please feel free to call me at [phone]. Thank you for the referral of this patient. Sincerely, Juan M Velasquez, PT, Cert MDT, OCS Balance/Gait/Functional tests - Balance/Special Test Scores Oswestry Low Back Score: 21
== END 2022-04-30 19:00 | disposition home or self-care (01) ==
LOC: PT 14:00
PROVIDERS: Referring Provider Physical Medicine & Rehabilitation; Visit Provider Physical Medicine & Rehabilitation
DX: M54.16 Radiculopathy, lumbar region (principal); M47.817 Spondylosis without myelopathy or radiculopathy, lumbosacral region; M17.0 Bilateral primary osteoarthritis of knee; M79.18 Myalgia, other site
CPT/HCPCS: 97110; 97113; 97162; 97530

== ENCOUNTER → 2022-11-26 | Outpatient (CLI) | payer MEDICARE, SELFPAY ==
--- NOTE | 2022-11-26 16:51 | CT_ITS ---
EXAM: CT CHEST WITHOUT INTRAVENOUS CONTRAST CLINICAL INDICATION: CP ON BREATHING TECHNIQUE: Helically acquired images were obtained of the chest without intravenous contrast. This CT exam was performed using one or more of the following dose reduction techniques: automated exposure control, adjustment of the mA and/or kV according to patient size, and/or use of iterative reconstruction technique. COMPARISON: No relevant prior studies available. FINDINGS: LUNGS AND PLEURAL SPACES: Benign calcified granulomas in the lower lobes. No mass. No pleural effusion or thickening. No acute airspace disease. HEART: Coronary artery calcifications. Heart size is normal. No pericardial effusion. MEDIASTINUM: Surgical changes of the mediastinum. Benign calcified mediastinal and hilar lymph nodes, not enlarged. Esophagus is unremarkable. No hiatal hernia. THYROID: Unremarkable. No thyroid lesions. BONES/JOINTS: Degenerative changes of the spine. No suspicious lytic or blastic abnormality. VASCULATURE: Mild atherosclerotic changes of the thoracic aorta but no aneurysm. CT/Chest without Contrast IMPRESSION: No acute findings in the chest. No CT complications identified at the sternotomy site. Electronically Signed: Jorge More MD at 2:12 EDT ,
== END | disposition home or self-care (01) ==
DX: R07.1 Chest pain on breathing (principal)
CPT/HCPCS: 71250

== ENCOUNTER 2023-01-18 15:30 | Outpatient (RCR) | payer MEDICARE, SELFPAY ==
--- NOTE | 2022-10-06 15:38 | HP.PTEVAL ---
Patient's Visit Information SIOBHAN RENTERIA is a 72 year old F referred to Physical Therapy by DEJUAN JOE MD with a diagnosis of RADICULOPATHY ,LUMBAR ,MYALGIA ,CHRONIC PAIN SYNDROME ,DDD LUMABR. Date of Evaluation: 10/06/22 Physical Therapist: Jaun M Velasquez, PT, Cert MDT, OCS - Visit Plan Frequency: 2x /Week Duration: 4 Weeks Plan: PT INTERVETIONS AQUATIC THERAPY FOR ROM/STRENGTH BLE ,LUMBAR ROM ,DLS ,FLEXABLITY AND POSTURAL EX'S - Subjective This 72 y/o female presents to physical therapy with lumbar radiculopathy. Patient has lumbar pain many years. Patient is unable to have surgery. Patient has had prior diagnostics mod stenosis. Patient has had PT in past which has helped. Patient has been in management several times ,most recently ablation ~ 2weeks had epidural injection 1st. No medication except gabapentin. Patient has global paresthesia/tingling arms and legs. Aggravating factors ,standing ,walking and sitting and mod lifting. Alleviation factors rest . Coughing/sneezing -. Bowel/bladder -. Patient able to sleep okay at night . No abnormal night pain. Patient has contributing factors with left hip pain with DJD ,had right THR and bilateral knee DJD tried Synvix. Patient CABG x2 last SEPTEMBER 2021. Patient also use cane for extended walking. Patient has had airborne and air delivery specialist . Patient goal is too decrease pain. SOCIAL: . VOCATION: retired - Pain Bilateral Back Pain Intensity (Out of 10): 7 Pain Intensity Range: 10 - Objective POSTURE: forward posture hips/knees. GAIT: reciprocal pattern hips knees flexed forward posture with straight cane. SYMMTRIES: align. PALAPTION: tender LS/SI region. AROM KNEE : 30 -100 flexion degrees R ,25-95 flexion degrees L. MMT:( peak force) quads R 10.6 , L 11.7, hamstrings right 12.3 R ,12.1 L ,hip flexion 10.9 ,ankle 4/5. FLEXABLITY: hamstrings min tight - Special Tests L/S Slump test left side: Negative L/S Slump test right side: Negative L/S Left Straight Leg Raise: Negative L/S Right Straight Leg Raise: Negative - Balance/Special Test Scores Oswestry Low Back Score: 31 - Goals Goal 1:: I Aquatic therapy for lumbar pain Goal Time Frame: 4-6 Weeks Goal 2:: Patient to improve lumbar ROM for function of recovery to put shoes. Goal 3:: Patient to demonstrate 40 % improvement with decrease pain and improved function. Goal Time Frame: 4-6 Weeks Goal 4:: Patient to increase strength quads/hams by 5 > to improve gait Goal Time Frame: 4-6 Weeks Goal 5:: Patient to improve back oswestry score by 5 points or > [place] improve QOL and function Goal Time Frame: 4-6 Weeks - Rehabilitation Potential Physical Therapy Diagnosis: This patient has multiple contributing factors affecting condition with lumbar pain ,decrease gait ,decrease lumbar ROM ,decrease ROM knee ,weakness which impairs gait and ADLS' thus benefit from skilled PT Rehabilitation Potential: Good - Anticipated Interventions Patient/Client Instruction: Educate patient on: Condition, Plan of Care For the Purpose of:: To decrease pain, To increase ROM, To improve muscle performance and motor function, To increase tolerance to activity/condition/position, To improve ability of physical actions for home/community/work/leisure, To improve health of tissue, To decrease soft tissue restriction, To increase flexibility/ROM, To reduce risk of recurrence, To prevent re-injury Therapeutic Exercise to Include: Strength training, Endurance training, Balance training, Postural training, Flexibilty training, In an aquatic setting, Passive ROM, Active ROM, Dynamic Lumbar Stabilization For the Purpose of:: To decrease pain, To increase ROM, To improve nutrient delivery to tissue, To increase oxygenation perfusion, To improve muscle performance and motor function, To improve ability of physical actions for home/community/work/leisure, To improve health of tissue, To decrease soft tissue restriction, To increase flexibility/ROM, To improve balance, To reduce risk of recurrence Thank you for the opportunity to evaluate your patient. For Medicare and Medicare HMO plans, please review the plan of care and approve it. It will need to be FAXED BACK to us at [phone] for Medicare purposes. For Medicare only, by signing this I certify the plan of care. Please let me know if there are questions or concerns regarding this plan of care. Physician Signature: Date:
--- NOTE | 2022-11-23 15:06 | HP.PTREVAL_ITS ---
DEJUAN JOE MD, It has been my pleasure to treat SIOBHAN RENTERIA over the last 10 visits for RADICULOPATHY ,LUMBAR ,MYALGIA ,CHRONIC PAIN SYNDROME ,DDD LUMABR. Please see the progress note below for an update on the physical therapy plan of care! Subjective: Patient progressing in water ..states it is helping back and knees Objective/Function: POSTURE: forward posture hips/knees. GAIT: reciprocal pattern hips knees flexed forward posture with straight cane. PALAPTION: tender LS/SI region. AROM KNEE : 30 -100 flexion degrees R ,25-95 flexion degrees L. MMT:( peak force) quads R 20.6 , L 21.7, hamstrings right 27.3 R ,25.1 L ,hip flexion 29.9 right,20.9 left ,ankle 4/5. FLEXABLITY: hamstrings min tight Plan Plan: CONT WITH POC. PT INTERVETIONS AQUATIC THERAPY FOR ROM/STRENGTH BLE ,LUMBAR ROM ,DLS ,FLEXABLITY AND POSTURAL EX'S Balance/Gait/Functional tests - Balance/Special Test Scores Oswestry Low Back Score: 28 Goals Goal 1:: I Aquatic therapy for lumbar pain Goal Time Frame: 4-6 Weeks Goal Progress: Progressing Goal 2:: Patient to improve lumbar ROM for function of recovery to put shoes. Goal Progress: Progressing Goal 3:: Patient to demonstrate 70 % improvement with decrease pain and improved function.(NEW GOAL) Goal Time Frame: 4-6 Weeks Goal 4:: Patient to increase strength quads/hams by 5 > to improve gait (NEW GOAL) Goal Time Frame: 4-6 Weeks Goal 5:: Patient to improve back oswestry score by 5 points or > [place] improve QOL and function Goal Time Frame: 4-6 Weeks Goal Progress: Progressing Anticipated Interventions Patient/Client Instruction: Educate patient on: Condition, Plan of Care For the Purpose of:: To decrease pain, To increase ROM, To improve muscle performance and motor function, To increase tolerance to activity/condition/position, To improve ability of physical actions for home/c ommunity/work/leisure, To improve health of tissue, To decrease soft tissue restriction, To increase flexibility/ROM, To reduce risk of recurrence, To prevent re-injury Therapeutic Exercise to Include: Strength training, Endurance training, Balance training, Postural training, Flexibilty training, In an aquatic setting, Passive ROM, Active ROM, Dynamic Lumbar Stabilization For the Purpose of:: To decrease pain, To increase ROM, To improve nutrient delivery to tissue, To increase oxygenation perfusion, To improve muscle performance and motor function, To improve ability of physical actions for home/community/work/leisure, To improve health of tissue, To decrease soft tissue restriction, To increase flexibility/ROM, To improve balance, To reduce risk of recurrence Please do not hesitate to contact me at [phone] by phone or if you have questions or concerns regarding this new plan of care! Sincerely, Juan M Velasquez, PT, Cert MDT, OCS
--- NOTE | 2022-12-29 15:30 | HP.PTREVAL_ITS ---
DEJUAN JOE MD, It has been my pleasure to treat SIOBHAN RENTERIA over the last 17 visits for RADICULOPATHY ,LUMBAR ,MYALGIA ,CHRONIC PAIN SYNDROME ,DDD LUMABR. Please see the progress note below for an update on the physical therapy plan of care! Subjective: Getting better. Doctor gave on pain pills so she could work out more and lose weight. Needs Both knees and L hip FLORENCIA, R one already done. Back pain is improving with recent pain procedures but disc above it is inflammed. Pain this week to 8/, doing anything and walking 200+ feet but gone when she sits down. Pool feels good. Walker helps with pain but does not use it. Feels like she can continue in the pool but overly confident. F/u dr. Bloom in january. Objective/Function: 7 points better on oswestry back. Walking with cane and suing it just for balance, not helping with pain. Walking with flexed knees and L antalgia. Steps are hesitant and painful, needing railing. Plan Plan: 1x/week in therapy to progress and wean form skilled pool. Pt to join and get in pool 2-3x/week on her own and continue ex she has been taught. fair prognosis to wean therpay and continue to improve pain. Balance/Gait/Functional tests - Balance/Special Test Scores Oswestry Low Back Score: 21 Goals Goal 1:: I Aquatic therapy for lumbar pain Goal Time Frame: 4-6 Weeks Goal Progress: Goal Met Goal 2:: Patient to improve lumbar ROM for function of recovery to put shoes. Goal Progress: Progressing Goal 3:: Patient to demonstrate 70 % improvement with decrease pain and improved function.(NEW GOAL) Goal Time Frame: 4-6 Weeks Goal Progress: 60% Goal 4:: Patient to increase strength quads/hams by 5 > to improve gait (NEW GOAL) Goal Time Frame: 4-6 Weeks Goal Progress: Goal Met Goal 5:: Patient to improve back oswestry score by 5 points or > [place] improve QOL and function Goal Time Frame: 4-6 Weeks Goal Progress: Goal Met Goal 6:: 75% better overall and pt compliant and I in progression of pool therapy over the next month 1x in therapy and 2-3x/week on own. Goal Time Frame: 2-4 Weeks Goal Progress: NEW GOAL Anticipated Interventions Patient/Client Instruction: Educate patient on: Condition, Plan of Care For the Purpose of:: To decrease pain, To increase ROM, To improve muscle performance and motor function, To increase tolerance to activity/conditi on/position, To improve ability of physical actions for home/community/work/leisure, To improve health of tissue, To decrease soft tissue restriction, To increase flexibility/ROM, To reduce risk of recurrence, To prevent re-injury Therapeutic Exercise to Include: Strength training, Endurance training, Balance training, Postural training, Flexibilty training, In an aquatic setting, Passive ROM, Active ROM, Dynamic Lumbar Stabilization For the Purpose of:: To decrease pain, To increase ROM, To improve nutrient delivery to tissue, To increase oxygenation perfusion, To improve muscle performance and motor function, To improve ability of physical actions for home/community/work/leisure, To improve health of tissue, To decrease soft tissue restriction, To increase flexibility/ROM, To improve balance, To reduce risk of recurrence Please do not hesitate to contact me at [phone] by phone or if you have questions or concerns regarding this new plan of care! Sincerely, Jimbo Raymundo, DPT, OCS, CSCS
== END 2023-01-18 19:00 | disposition home or self-care (01) ==
LOC: PT 15:30
PROVIDERS: PCP Physician Assistant; Referring Provider Physical Medicine & Rehabilitation; Visit Provider Physical Medicine & Rehabilitation
DX: M43.16 Spondylolisthesis, lumbar region (principal); Z98.1 Arthrodesis status
CPT/HCPCS: 97113; 97162; 97164; 97530

== ENCOUNTER 2023-05-27 15:00 | Outpatient (RCR) | payer MEDICARE, SELFPAY ==
--- NOTE | 2023-02-14 16:58 | HP.PTEVAL_ITS ---
Patient's Visit Information Visit Information Visit Information: SIOBHAN RENTERIA is a 73 year old F referred to Physical Therapy by JOE VASQUES with a diagnosis of PRIMARY OSTEOARTHRITIS OF BOTH KNEES. Date of Evaluation: 02/14/23 Physical Therapist: Juan M Velasquez, PT, Cert MDT, OCS Visit Plan Frequency: 2x /Week Duration: 4 Weeks Plan: PT INTERVENTIONS AQUATIC THERAPY FOR ROM KNEES ,STRENGTH BLE QUADS/HAMS/HIP ,AND FUNCTIONAL STRENGTHENING Subjective Subjective: This 73 y/o female presents to physical therapy with primary osteoarthritis bilateral knees. Patient has left knee worse than right knee pain. Patient injury to knee squatting in water caused left knee pain ~ 6weeks ago. Tried prednisone . Patient seen Dr Vasques ~ 2weeks and recommended Aquatic therapy with no lifting. Patient pain located posterior knee pain . Aggravating extended walking and standing initially unable to walk unable to squat/kneel and has pain with knee pain with stairs. Alleviating factors rest. Patient does pain medication used for back. Patient walks minimal due to pain ~ 15 ft . Patient pain doesn't affects sleeping. Patient c/o paresthesia/tingling in legs. Patient pain in knee causes deficits for ADLS and housework's . Patient goals to decrease pain. Pain Left Knee: Pain Intensity (Out of 10): 6 Pain Intensity Range: 10 Right Knee: Pain Intensity (Out of 10): 4 Pain Intensity Range: 10 Objective Objective: POSTURE: mod flexed forward hip/knees flexed GAIT: ambulates with knee flexed ,trunk flexed with decrease stance time left > right forward trunk with cane slow antalgic gait PALPATION: medial/lateral joint line EDEMA: effusion left knee AROM: supine knee flexion left 20-90 degrees ,right 30-100 degrees FLEXABLITY: hams mod tight MMT: ( Peak force) quads left 9.6,hamstrings 9.9 left ,right 17.6 ,hip flexion 12.1 left ,right 16.9,hip abd 5.9 ankle 5/5 STAIRS: unable Balance/Special Test Scores Lower Extremity Functional Score: 4 Goals Goal 1:: Patient to be I with Aquatic therapy Goal Time Frame: 4-6 Weeks Goal 2:: Patient to improve AROM supine knee flexion and extension by 5-10 degrees to improve gait Goal Time Frame: 4-6 Weeks Goal 3:: Patient to improve peak force of strength 5-10 # strength to improve function and strength and gait. Goal Time Frame: 4-6 Weeks Goal 4:: Patient to demonstrate 40% improve function with less pain Goal Time Frame: 4-6 Weeks Goal 5:: Patient to improve LFES score by 5 points to improve gait. Goal Time Frame: 4-6 Weeks Rehabilitation Potential Physical Therapy Diagnosis: Patient has significant bilateral knee DJD with pain ,decrease ROM ,weakness left> right , impairs limited gait unable to do stairs thus benefit from skilled PT Rehabilitation Potential: Good Anticipated Interventions Patient/Client Instruction: Educate patient on: Condition and Plan of Care For the Purpose of:: To decrease pain, To increase ROM, To increase tolerance to activity/condition/position, To improve performance and independence with ADL's, To improve ability of physical actions for home/community/work/leisure, To improve gait and locomotor functions, To improve health of tissue, To decrease soft tissue restriction, To increase flexibility/ROM, To improve endurance, To improve balance, To reduce risk of recurrence and To improve tolerance to ADL's Therapeutic Exercise to Include: Strength training, Endurance training, Balance training, Postural training, Flexibilty training, Gait and locomotor training, In an aquatic setting , Passive ROM and Active ROM Comment: QUADS/HAMS/HIP For the Purpose of:: To decrease pain, To increase ROM, To increase oxygenation perfusion, To improve ability to perform ADL's, To improve ability of physical actions for home/community/work/leisure, To improve gait and locomotor functions, To improve health of tissue, To decrease soft tissue restriction, To increase flexibility/ROM, To improve endurance and To improve tolerance to ADL's Text: Thank you for the opportunity to evaluate your patient. For Medicare and Medicare HMO plans, please review the plan of care and approve it. It will need to be FAXED BACK to us at [phone] for Medicare purposes. For Medicare only, by signing this I certify the plan of care. Please let me know if there are questions or concerns regarding this plan of c are. Physician Signature: Date:
--- NOTE | 2023-03-24 17:49 | HP.PTREVAL ---
Re-Evaluation Intro: JOE VASQUES, It has been my pleasure to treat SIOBHAN RENTERIA over the last 9 visits for PRIMARY OSTEOARTHRITIS OF BOTH KNEES. Please see the progress note below for an update on the physical therapy plan of care! Subjective Subjective: Patient is doing much better .Walking much better Objective Objective/Function: Objective: POSTURE: mild flexed forward hip/knees flexed GAIT: ambulates with reciprocal pattern with mild forward posture with cane PALPATION: medial/lateral joint line EDEMA: effusion left knee AROM: supine knee flexion left 20-90 degrees ,right 30-100 degrees FLEXABLITY: hams mod tight MMT: ( Peak force) quads left 23.6, right 26.1hamstrings 18.9 left ,right 17.6 ,hip flexion 18.7 left ,right 16.9,hip abd 7.9 ankle 5/5 STAIRS: unable Plan Plan Plan: PT INTERVENTIONS AQUATIC THERAPY FOR ROM KNEES ,STRENGTH BLE QUADS/HAMS/HIP ,AND FUNCTIONAL STRENGTHENING Balance/Gait/Functional tests Balance/Special Test Scores Lower Extremity Functional Score: 21 Goals Goals Goal 1:: Patient to be I with Aquatic therapy Goal Time Frame: 4-6 Weeks Goal Progress: Progressing Goal 2:: Patient to improve AROM supine knee flexion and extension by 5-10 degrees to improve gait Goal Time Frame: 4-6 Weeks Goal Progress: Progressing Goal 3:: Patient to improve peak force of strength 5-10 # strength to improve function and strength and gait. ( new goal) Goal Time Frame: 4-6 Weeks Goal 4:: Patient to demonstrate 70% improve function with less pain ( new goal) Goal Time Frame: 4-6 Weeks Goal 5:: Patient to improve LFES score by 5 points to improve gait.( new goal) Goal Time Frame: 4-6 Weeks Anticipated Interventions Anticipated Interventions Patient/Client Instruction: Educate patient on: Condition and Plan of Care For the Purpose of:: To decrease pain, To increase ROM, To increase tolerance to activity/condition/position, To improve performance and independence with ADL's, To improve ability of physical actions for home/community/work/leisure, To improve gait and locomotor functions, To improve health of tissue, To decrease soft tissue restriction, To increase flexibility/ROM, To improve endurance, To improve balance, To reduce risk of recurrence and To improve tolerance to ADL's Therapeutic Exercise to Include: Strength training, Endurance training, Balance training, Postural training, Flexibilty training, Gait and locomotor training, In an aquatic setting , Passive ROM and Active ROM Comment: QUADS/HAMS/HIP For the Purpose of:: To decrease pain, To increase ROM, To increase oxygenation perfusion, To improve ability to perform ADL's, To improve ability of physical actions for home/community/work/leisure, To improve gait and locomotor functions, To improve health of tissue, To decrease soft tissue restriction, To increase flexibility/ROM, To improve endurance and To improve tolerance to ADL's Re-Evaluation Ending Re-evaluation ending: Please do not hesitate to contact me at [phone] by phone or if you have questions or concerns regarding this new plan of care! Sincerely, Juan M Velasquez, PT, Cert MDT, OCS
== END 2023-05-27 19:00 | disposition home or self-care (01) ==
LOC: PT 15:00
PROVIDERS: PCP Physician Assistant
DX: M17.0 Bilateral primary osteoarthritis of knee (principal)
CPT/HCPCS: 97113; 97162; 97530

== ENCOUNTER 2024-10-19 14:30 | Outpatient (RCR) | payer MEDICARE, SELFPAY ==
--- NOTE | 2024-01-12 15:26 | HP.PTEVAL_ITS ---
Patient's Visit Information Visit Information Visit Information: SIOBHAN RENTERIA is a 73 year old F referred to Physical Therapy by Gabe Dent MD with a diagnosis of PAIN IN BOTH KNEES UNSCPRCIFIED CHRONICITY. Date of Evaluation: 01/12/24 Physical Therapist: Juan M Velasquez, PT, Cert MDT, OCS Visit Plan Frequency: 2x /Week Duration: 4 Weeks Plan: PT INTERVENTIONS AQUATIC THERAPY WITH ROM/FLEXABILITY KNEES ,STRENGTHENING QUADS/HAMS/HIP ,AND ENDURANCE EX'S Subjective Subjective: This 73 y/o female presents with Physical therapy with bilateral k nee pain. Patient has knee pain for many years. Seen DR Dent x-rays mod DJD. Recommended PT to help pain. Pain located global described ache . Aggravating walking /standing < 2mins ,difficulty with stairs ,unable to knee or squat. Alleviating factors rest. C/O paresthesia/tingling in legs. Patient has difficulty sleeping due to pain. Patient goes to pain management. Patient has h/o gel injection in knees. Needs cane for community walking.Patient condition affects QOL and function/walking. Patient goals to decrease pain and walk better. SOCIAL: VOCATION: retired Pain Right Knee: Pain Intensity (Out of 10): 9 Pain Intensity Range: 10 Left Knee: Pain Intensity (Out of 10): 7 Pain Intensity Range: 10 Objective Objective: POSTURE: mod flexed forward hip/knees flexed GAIT: ambulates with knee flexed , with decrease stance time left and right forward trunk with cane slow antalgic gait PALPATION: medial joint line EDEMA: mild effusion AROM: supine knee flexion left 25-90 degrees ,right 25-95 degrees FLEXABLITY: hams mod tight MMT: ( Peak force) quads left 14.6 ,right 15.9,hamstrings 15.6 left ,right 16.5 ,hip flexion 17.1 left ,right 16.9,hip abd 8.9 ankle 5/5 STAIRS: one steps side ways with rails Balance/Special Test Scores Lower Extremity Functional Score: 18 Goals Goal 1:: Patient to be I with Aquatic Therapy Goal Time Frame: 4-6 Weeks Goal 2:: Patient to improve AROM knee by 5-10 degrees to improve function. Goal Time Frame: 4-6 Weeks Goal 3:: Patient to improve peak force quads/hams by 5-10 # to improve gait Goal Time Frame: 4-6 Weeks Goal 4:: Patient to improve LFES score by 5 points to improve QOL and function. Goal Time Frame: 4-6 Weeks Goal 5:: Patient to demonstrated 30-40% improvement with less pain and improved function. Goal Time Frame: 4-6 Weeks Rehabilitation Potential Physical Therapy Diagnosis: This patient has bilateral knee pain for DJD with pain ,decrease ROM ,weakness ,impairs walking/standing and ADLS thus benefits from skilled PT Rehabilitation Potential: Good Anticipated Interventions Patient/Client Instruction: Educate patient on: Condition and Plan of Care For the Purpose of:: To decrease pain, To increase ROM, To improve muscle performance and motor function, To improve ability to perform ADL's, To increase tolerance to activity/condition/position, To improve ability of physical actions for home/community/work/leisure, To improve gait and locomotor functions, To improve health of tissue, To decrease soft tissue restriction and To increase flexibility/ROM Therapeutic Exercise to Include: Strength training, Endurance training, Balance training, Flexibilty training, Gait and locomotor training, In an aquatic setting, Passive ROM and Active ROM Comment: QUADS/HAMS/HIP For the Purpose of:: To decrease pain, To increase ROM, To improve muscle performance and motor function, To improve ability to perform ADL's, To increase tolerance to activity/condition/position, To improve ability of physical actions for home/community/work/leisure, To improve health of tissue, To decrease soft tissue restriction, To increase flexibility/ROM, To improve endurance, To improve balance and To improve tolerance to ADL's Text: Thank you for the opportunity to evaluate your patient. For Medicare and Medicare HMO plans, please review the plan of care and approve it. It will need to be FAXED BACK to us at [phone] for Medicare purposes. For Medicare only, by signing this I certify the plan of care. Please let me know if there are questions or concerns regarding this plan of care. Physician Signature: Date:
--- NOTE | 2024-03-12 13:23 | HP.PTREVAL ---
Re-Evaluation Intro: Gabe Dent MD, It has been my pleasure to treat SIOBHAN RENTERIA over the last 15 visits for PAIN IN BOTH KNEES UNSPECIFIED CHRONICITY. Please see the progress note below for an update on the physical therapy plan of care! Subjective Subjective: Doing some better Hd injection de Orozco Plan to see DR Dent Objective Objective/Function: *Patient has made progress towards goals with ROM and strength thus patient will benefit from skilled PT with goals appropriate and updated* POSTURE: mod flexed forward hip/knees flexed GAIT: ambulates with knee flexed , with decrease stance time left and right forward trunk with cane slow antalgic gait PALPATION: medial joint line LEFT > RIGHT EDEMA: mild effusion AROM: supine knee flexion left 25-102 degrees ,right 25-107 degrees FLEXABLITY: hams mod tight MMT: ( Peak force) quads left 36.6 ,right28.1,hamstrings 38.6 left ,right 38.1 ,hip flexion 24.1 left ,right 26.1,hip abd 14.9 ankle 5/5 STAIRS: one steps side ways with rails Plan Plan Plan: PT INTERVENTIONS AQUATIC THERAPY WITH ROM/FLEXABILITY KNEES ,STRENGTHENING QUADS/HAMS/HIP ,AND ENDURANCE EX'S Balance/Gait/Functional tests Balance/Special Test Scores Lower Extremity Functional Score: 21 Goals Goals Goal 1:: Patient to be I with Aquatic Therapy Goal Time Frame: 4-6 Weeks Goal Progress: Progressing Goal 2:: Patient to improve AROM knee by 5-10 degrees to improve function. Goal Time Frame: 4-6 Weeks Goal Progress: Progressing Goal 3:: Patient to improve peak force quads/hams by 5-10 # to improve gait ( new goal) Goal Time Frame: 4-6 Weeks Goal Progress: Progressing Goal 4:: Patient to improve LFES score by 5 points to improve QOL and function. Goal Time Frame: 4-6 Weeks Goal Progress: Progressing Goal 5:: Patient to demonstrated 50% improvement with less pain and improved function.( new goal) Goal Time Frame: 4-6 Weeks Anticipated Interventions Anticipated Interventions Patient/Client Instruction: Educate patient on: Condition and Plan of Care For the Purpose of:: To decrease pain, To increase ROM, To improve muscle performance and motor function, To improve ability to perform ADL's, To increase tolerance to activity/condition/position, To improve ability of physical actions for home/community/work/leisure, To improve gait and locomotor functions, To improve health of tissue, To decrease soft tissue restriction and To increase flexibility/ROM Therapeutic Exercise to Include: Strength training, Endurance training, Balance training, Flexibilty training, Gait and locomotor training, In an aquatic setting, Passive ROM and Active ROM Comment: QUADS/HAMS/HIP For the Purpose of:: To decrease pain, To increase ROM, To improve muscle performance and motor function, To improve ability to perform ADL's, To increase tolerance to activity/condition/position, To improve ability of physical actions for home/community/work/leisure, To improve health of tissue, To decrease soft tissue restriction, To increase flexibility/ROM, To improve endurance, To improve balance and To improve tolerance to ADL's Re-Evaluation Ending Re-evaluation ending: Please do not hesitate to contact me at [phone] by phone or if you have questions or concerns regarding this new plan of care! Sincerely, Juan M Velasquez, PT, Cert MDT, OCS
--- NOTE | 2024-05-02 15:46 | HP.PTREVAL ---
Re-Evaluation Intro: Gabe Dent MD, It has been my pleasure to treat SIOBHAN RENTERIA over the last 27 visits for PAIN IN BOTH KNEES UNSPECIFIED CHRONICITY. Please see the progress note below for an update on the physical therapy plan of care! Subjective Subjective: Doing better with walking with knee Patient knee progressively worse poor but walking better Patient had ablashia in back Objective Objective/Function: * Patient will benefit from skilled PT with Aquatic due to severity of DJD with knees and decrease ROM affects walking standing but needs FLORENCIA possible goals are addressed* POSTURE: mod flexed forward hip/knees flexed GAIT: ambulates with knee flexed , with decrease stance time left and right forward trunk with cane slow antalgic gait PALPATION: medial joint line LEFT > RIGHT EDEMA: mild effusion AROM: supine knee flexion left 25-98 degrees ,right 25-1065 degrees FLEXABLITY: hams mod tight MMT: ( Peak force) quads left 34.1 ,right28.2,hamstrings 33.6 left ,right 32.1 ,hip flexion 24.1 left ,right 26.1,hip abd 14.9 ankle 5/5 STAIRS: one steps side ways with rails Plan Plan Plan: PT INTERVENTIONS AQUATIC THERAPY WITH ROM/FLEXABILITY KNEES ,STRENGTHENING QUADS/HAMS/HIP ,AND ENDURANCE EX'S Balance/Gait/Functional tests Balance/Special Test Scores Lower Extremity Functional Score: 23 Goals Goals Goal 1:: Patient to be I with Aquatic Therapy Goal Time Frame: 4-6 Weeks Goal Progress: Progressing Goal 2:: Patient to improve AROM knee by 5-10 degrees to improve function. Goal Time Frame: 4-6 Weeks Goal Progress: Progressing Goal 3:: Patient to improve peak force quads/hams by 5-10 # to improve gait ( new goal) Goal Time Frame: 4-6 Weeks Goal Progress: Progressing Goal 4:: Patient to improve LFES score by 5 points to improve QOL and function. Goal Time Frame: 4-6 Weeks Goal Progress: Progressing Goal 5:: Patient to demonstrated 80% improvement with less pain and improved function.( new goal) Goal Time Frame: 4-6 Weeks Anticipated Interventions Anticipated Interventions Patient/Client Instruction: Educate patient on: Condition and Plan of Care For the Purpose of:: To decrease pain, To increase ROM, To improve muscle performance and motor function, To improve ability to perform ADL's, To increase tolerance to activity/condition/position, To improve ability of physical actions for home/community/work/leisure, To improve gait and locomotor functions, To improve health of tissue, To decrease soft tissue restriction and To increase flexibility/ROM Therapeutic Exercise to Include: Strength training, Endurance training, Balance training, Flexibilty training, Gait and locomotor training, In an aquatic setting, Passive ROM and Active ROM Comment: QUADS/HAMS/HIP For the Purpose of:: To decrease pain, To increase ROM, To improve muscle performance and motor function, To improve ability to perform ADL's, To increase tolerance to activity/condition/position, To improve ability of physical actions for home/community/work/leisure, To improve health of tissue, To decrease soft tissue restriction, To increase flexibility/ROM, To improve endurance, To improve balance and To improve tolerance to ADL's Re-Evaluation Ending Re-evaluation ending: Please do not hesitate to contact me at [phone] by phone or if you have questions or concerns regarding this new plan of care! Sincerely, Juan M Velasquez, PT, Cert MDT, OCS
--- NOTE | 2024-06-14 16:59 | HP.PTREVAL ---
Re-Evaluation Intro: Gabe Dent MD, It has been my pleasure to treat SIOBHAN RENTERIA over the last 33 visits for PAIN IN BOTH KNEES UNSPECIFIED CHRONICITY. Please see the progress note below for an update on the physical therapy plan of care! Subjective Subjective: Patient plans to have left FLORENCIA Patient Objective Objective/Function: * Patient will benefit from skilled PT with Aquatic due to severity of DJD with knees and decrease ROM with patient affects walking standing but needs FLORENCIA possible goals are addressed* POSTURE: mod flexed forward hip/knees flexed GAIT: ambulates with knee flexed , with decrease stance time left and right forward trunk with cane slow antalgic gait PALPATION: medial joint line LEFT > RIGHT EDEMA: mild effusion AROM: supine knee flexion left 25-90 degrees ,right 25-100 degrees FLEXABLITY: hams mod tight MMT: ( Peak force) quads left 33.1 ,right27.2,hamstrings 34.6 left ,right 31.1 ,hip flexion 28.1 left ,right 24.1,hip abd 14.9 ankle 5/5 SP02 : 94% Plan Plan Plan: REQUESTING 8 MORE VISITS PT INTERVENTIONS AQUATIC THERAPY WITH ROM/FLEXABILITY KNEES ,STRENGTHENING QUADS/HAMS/HIP ,AND ENDURANCE EX'S Balance/Gait/Functional tests Balance/Special Test Scores Lower Extremity Functional Score: 23 Goals Goals Goal 1:: Patient to be I with Aquatic Therapy Goal Time Frame: 4-6 Weeks Goal Progress: Progressing Goal 2:: Patient to improve AROM knee by 5-10 degrees to improve function. Goal Time Frame: 4-6 Weeks Goal Progress: Progressing Goal 3:: Patient to improve peak force quads/hams by 5-10 # to improve gait ( new goal) Goal Time Frame: 4-6 Weeks Goal Progress: Progressing Goal 4:: Patient to improve LFES score by 5 points to improve QOL and function. Goal Time Frame: 4-6 Weeks Goal Progress: Progressing Goal 5:: Patient to demonstrated 80% improvement with less pain and improved function.( new goal) Goal Time Frame: 4-6 Weeks Anticipated Interventions Anticipated Interventions Patient/Client Instruction: Educate patient on: Condition and Plan of Care For the Purpose of:: To decrease pain, To increase ROM, To improve muscle performance and motor function, To improve ability to perform ADL's, To increase tolerance to activity/condition/position, To improve ability of physical actions for home/community/work/leisure, To improve gait and locomotor functions, To improve health of tissue, To decrease soft tissue restriction and To increase flexibility/ROM Therapeutic Exercise to Include: Strength training, Endurance training, Balance training, Flexibilty training, Gait and locomotor training, In an aquatic setting, Passive ROM and Active ROM Comment: QUADS/HAMS/HIP For the Purpose of:: To decrease pain, To increase ROM, To improve muscle performance and motor function, To improve ability to perform ADL's, To increase tolerance to activity/condition/position, To improve ability of physical actions for home/community/work/leisure, To improve health of tissue, To decrease soft tissue restriction, To increase flexibility/ROM, To improve endurance, To improve balance and To improve tolerance to ADL's Re-Evaluation Ending Re-evaluation ending: Please do not hesitate to contact me at [phone] by phone or if you have questions or concerns regarding this new plan of care! Sincerely, Juan M Velasquez, PT, Cert MDT, OCS
--- NOTE | 2024-10-19 15:59 | HP.PTDCSUM ---
Discharge Summary D/C summary: It has been my pleasure to treat SIOBHAN RENTERIA referred by Gabe Dent MD, with the diagnosis of PAIN IN BOTH KNEES UNSPECIFIED CHRONICITY for a total of 43 visit(s). Discharge Date: 10/19/24 Please see the following information for a summary of their discharge status. Subjective Subjective: Patient had 2 ablashia ~ 2 weeks ago which really helped Still in works for hip Slipped on ice. Pain Right Knee: Pain Intensity (Out of 10): 6 Left Knee: Pain Intensity (Out of 10): 6 LBP: Pain Intensity (Out of 10): 3 L hip: Pain Intensity (Out of 10): 9 Overall Improvement % Improvement: 75 Objective Objective/Function: POSTURE: mod flexed forward hip/knees flexed GAIT: ambulates with knee flexed , with decrease stance time left and right forward trunk with cane slow antalgic gait PALPATION: medial joint line LEFT > RIGHT EDEMA: mild effusion AROM: supine knee flexion left 25-100 degrees ,right 25-110 degrees FLEXABLITY: hams mod tight MMT: ( Peak force) quads left33.1.1 ,right quads 35.2,hamstrings 38.6 left ,right 38.1 ,hip flexion 28.1 left ,right 24.1,hip abd 14.9 ankle 5/5 Goals Goal 1:: Patient to be I with Aquatic Therapy Goal Progress: Goal Met Goal 2:: Patient to improve AROM knee by 5-10 degrees to improve function. met except extension Goal Progress: Goal Met Goal 3:: Patient to improve peak force quads/hams by 5-10 # to improve gait ( new goal) Goal Progress: Progressing Goal 4:: Patient to improve LFES score by 5 points to improve QOL and function. Goal Progress: Progressing Goal 5:: Patient to demonstrated 80% improvement with less pain and improved function.( new goal) Goal Progress: Progressing Plan Plan: D/C TO AQUATIC THERAPY D/C Information Discharge Comments: d/c to Aquatics on own d/c sentence: If there are questions or concerns regarding this patient's physical therapy, please feel free to call me at [phone]. Thank you for the referral of this patient. Sincerely, Juan M Velasquez, PT, Cert MDT, OCS Balance/Gait/Functional tests Balance/Special Test Scores Lower Extremity Functional Score: 35 Improvement % Improvement: 75
== END 2024-10-19 19:00 | disposition home or self-care (01) ==
LOC: PT 14:30
PROVIDERS: PCP Physician Assistant; Referring Provider Orthopaedic Surgery; Visit Provider Orthopaedic Surgery
DX: M25.561 Pain in right knee (principal); M25.562 Pain in left knee
CPT/HCPCS: 97110; 97113; 97162; 97530

== ENCOUNTER 2025-03-04 16:00 | Outpatient (RCR) | payer MEDICARE, SELFPAY ==
--- NOTE | 2025-01-07 18:32 | HP.PTEVAL_ITS ---
Patient's Visit Information Visit Information Visit Information: SIOBHAN RENTERIA is a 74 year old F referred to Physical Therapy by KAI HE with a diagnosis of CHRONIC PAIN. Date of Evaluation: 01/07/25 Physical Therapist: Juan M Velasquez, PT, Cert MDT, OCS Visit Plan Frequency: 2x /Week Duration: 5WEEKS Plan: PT INTERVENTIONS AQUATIC THERAPY FOR DLS ,HIP/QUADS/HAMS STRENGTHENING, ,ROM HIP ,FLEXABILITY AND AEROBIC EX'S Subjective Subjective: This 74 y/o female presents to physical therapy chronic pain. Patient pain mainly located lumbar and left hip many years . 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 No imaging. Patient recently seen pain management DR and recommended Aquatics therapy. Patient has been in Aquatics for bilateral knees in past . Patient stated possible FLORENCIA left in fall May 2025. Patient uses cane for gait. Aggravating factors walking < 5 mins ,standing < ,unable to squat ./kneeling ,stairs. Ascend/descend steps one step at time with rail. Alleviating factors rest. Pain affects sleeping. Medication: tramadol ,gabepetin.Patient c/o paresthesia/tingling in legs.Patient symptoms pain affects QOL /function and gait. Patient goals to decrease pain hope to have FLORENCIA. SOCIAL: VOCATION: retired Pain Left Hip: Pain Intensity (Out of 10): 9 Pain Intensity Range: 10 Bilateral Back: Pain Intensity (Out of 10): 9 Pain Intensity Range: 10 Bilateral Knee: Pain Intensity (Out of 10): 5 Pain Intensity Range: 10 Objective Objective: POSTURE: mod flexed forward hip/knees flexed NEURO: c/o paresthesia in hands feet GAIT: ambulates with knee flexed forward trunk with cane slow antalgic gait LUMBAR ROM: flexion mod loss ,extension severe loss pain , side glides mod loss AROM: supine left hip flexion 75 degrees ,IR 0 degrees , hip abduction 25 d egrees , left knee flexion 30-95 degrees , right hip flexion 95 degrees , IR 15 degrees ,hip abd 32 degrees,right 25-100 degrees FLEXABILITY: hams mod tight MMT: ( Peak force) quads left 22.3 ,right 24.2,hamstrings 16.9 left ,right 21.3 ,hip flexion 21.1 left ,right 24.3, left hip abd 11.9,right 15.9 ankle 5/5 STAIRS: one step at time with rail Special Tests L/S Slump test left side: Negative L/S Slump test right side: Negative L/S Left Straight Leg Raise: Negative L/S Right Straight Leg Raise: Negative L Hip Scour: Positive Balance/Special Test Scores Lower Extremity Functional Score: 30 Goals Goal 1:: Patient to be I with Aquatic Program to I community gym program Goal Time Frame: 4-6 Weeks Goal 2:: Patient to improve hip ROM by 5-10 degrees to improve gait and function with ADLS Goal Time Frame: 4-6 Weeks Goal 3:: Patient to improve peak force of left hip .quads/hams by 5-10 # to improve QOL and gait Goal Time Frame: 4-6 Weeks Goal 4:: Patient to improve LFES score by 5 points to improve QOL and function Goal Time Frame: 4-6 Weeks Goal 5:: Patient improve back oswestry score by 5 points to improve QOL and function. Goal Time Frame: 4-6 Weeks Rehabilitation Potential Physical Therapy Diagnosis: This patient has multiple complexity issues with hip left pain ,knee and back pain impairs gait with decrease ROM hip and back and weakness BLE thus impairs ADLS and basic housework tasks thus benefit from skilled PT Rehabilitation Potential: Fair Anticipated Interventions Patient/Client Instruction: Educate patient on: Condition and Plan of Care For the Purpose of:: To increase ROM, To improve muscle performance and motor function, To improve ability to perform ADL's, To increase tolerance to activity/condition/position, To improve ability of physical actions for home/community/work/leisure, To improve health of tissue, To decrease soft tissue restriction, To increase flexibility/ROM, To improve endurance and To improve balance Therapeutic Exercise to Include: Strength training, Endurance training, Postural training, Flexibilty training, In an aquatic setting, Active ROM and Dynamic Lumbar Stabilization Comment: QUADS/HAMS/HIP For the Purpose of:: To decrease pain, To increase ROM, To improve muscle performance and motor function, To increase tolerance to activity /condition/position, To improve performance and independence with ADL's, To improve ability of physical actions for home/community/work/leisure, To improve health of tissue, To decrease soft tissue restriction, To increase flexibility/ROM and To improve tolerance to ADL's Text: Thank you for the opportunity to evaluate your patient. For Medicare and Medicare HMO plans, please review the plan of care and approve it. It will need to be FAXED BACK to us at [phone] for Medicare purposes. For Medicare only, by signing this I certify the plan of care. Please let me know if there are questions or concerns regarding this plan of care. Physician Signature: Date:
--- NOTE | 2025-03-04 16:31 | HP.PTDCSUM ---
Discharge Summary D/C summary: It has been my pleasure to treat SIOBHAN RENTERIA referred by KAI HE, with the diagnosis of CHRONIC PAIN for a total of 8 visit(s). Discharge Date: Please see the following information for a summary of their discharge status. Subjective Subjective: Patient fell 2 weeks ago in parking lot of [employer] Discussed with patient ,stating sees DR Dent to discuss hip Pain Left Hip: Pain Intensity (Out of 10): 9 Bilateral Back: Pain Intensity (Out of 10): 9 Bilateral Knee: Pain Intensity (Out of 10): 6 Overall Improvement % Improvement: 40 Objective Objective/Function: POSTURE: mod flexed forward hip/knees flexed NEURO: c/o paresthesia in hands feet GAIT: ambulates with knee flexed forward trunk with cane slow antalgic gait with cane LUMBAR ROM: flexion min loss ,extension severe loss pain , side glides mod loss AROM: supine left hip flexion 77 degrees ,IR 0 degrees , hip abduction 26 degrees , left knee flexion 30-96 degrees , right hip flexion 94 degrees , IR 15 degrees ,hip abd 33 degrees,right 25-102 degrees FLEXABILITY: hams mod tight MMT: ( Peak force) quads left 29.3 ,right 31.2,hamstrings 19.9 left ,right 233 ,hip flexion 19.1 left ,right 22.3, left hip abd 11.9,right 15.9 ankle 5/5 Goals Goal 1:: Patient to be I with Aquatic Program to I community gym program Goal Progress: Goal Met Goal 2:: Patient to improve hip ROM by 5-10 degrees to improve gait and function with ADLS Goal Progress: Progressing Goal 3:: Patient to improve peak force of left hip .quads/hams by 5-10 # to improve QOL and gait Goal Progress: Progressing Goal 4:: Patient to improve LFES score by 5 points to improve QOL and function Goal Progress: Progressing Goal 5:: Patient improve back oswestry score by 5 points to improve QOL and function. Goal Progress: Progressing Plan Plan: D/C possible on own D/C Information d/c sentence: If there are questions or concerns regarding this patient's physical therapy, please feel free to call me at [phone]. Thank you for the referral of this patient. Sincerely, Juan M Velasquez, PT, Cert MDT, OCS Balance/Gait/Functional tests Balance/Special Test Scores Lower Extremity Functional Score: 30 Improvement % Improvement: 40
== END 2025-03-04 19:00 | disposition home or self-care (01) ==
LOC: PT 16:00
PROVIDERS: PCP Physician Assistant
DX: G89.4 Chronic pain syndrome (principal)
CPT/HCPCS: 97113; 97162; 97530